=== PATIENT | female | born 1975 | race Caucasian/White ===

== ENCOUNTER 2017-12-20 15:01 | Inpatient (IN) | payer MEDICAID ==
[~2017-12-20] VITALS: Ht 157.5 cm; Wt 113.2 kg
[2017-12-20 15:11] VITALS: Ht 157.5 cm; Wt 113.2 kg
[2017-12-20] MEDS ORDERED: METFORMIN HCL850 MG PO (15:18)
[2017-12-20] MEDS ORDERED: RAMIPRIL2.5 MG PO (15:19)
[2017-12-20] MEDS ORDERED: ASPIR 8181 MG PO (15:19)
[2017-12-20] MEDS ORDERED: NORTRIPTYLINE H10 MG PO (15:19)
[2017-12-20 16:12] LABS: CALCIUM 8.4 mg/dL (8.5-10.1); CARBON DIOXIDE 23.8 mmol/L (21-32); CHLORIDE SERUM 101 mmol/L (98-107); CREATININE SERUM 1.1 mg/dL (0.6-1.0); GFR1 58 mL/min; GLUCOSE SERUM 224 mg/dL (74-106); POTASSIUM SERUM 4.2 mmol/L (3.5-5.1); SODIUM SERUM 135 mmol/L (136-145)
[2017-12-20 16:19] LABS: ALKALINE PHOSPHATASE 103 U/L (46-116); ALT/SGPT 14 U/L (14-59); AST/SGOT 12 U/L (15-37); BILIRUBIN TOTAL 0.76 mg/dL (0.20-1.00); CHOLESTEROL 142 mg/dL (<200); TOTAL PROTEIN, SERUM 8.1 g/dL (6.4-8.2)
[2017-12-20 16:20] LABS: ALBUMIN 3.1 g/dL (3.4-5.0); PLATELET COUNT 614 x10^3mcL (130-400)
[2017-12-20 16:44] LABS: UA SPECIFIC GRAVITY >=1.030 (1.005-1.035); microscopic required? YES; urine erythrocyte NEGATIVE (NEGATIVE)
[2017-12-20 16:47] LABS: MONOCYTE 2 % (0-7); SEGMENTED NEUTROPHILS 96 % (37-75); rbc morphology (normal/abnorm) ABNORMAL (NORMAL)
[2017-12-20 16:48] LABS: PLATELET MORPHOLOGY PLATELETS INCREASED
[2017-12-20 17:06] LABS: AMPHETAMINE QUAL UR NONE DETECTED (NEG <=1000)
[2017-12-20 17:26] LABS: CHOLESTEROL/HDL RATIO 3.2; PHOSPHOROUS 3.8 mg/dL (2.5-4.9)
[2017-12-20 17:35] LABS: T3 TOTAL 1.18 ng/mL
[2017-12-20 17:36] LABS: FREE T4 1.22 ng/dL (0.76-1.46); T4(THYROXINE) 12.6 ug/dL (4.7-13.3)
[2017-12-20 18:07] VITALS: BP 128/54
[2017-12-20 18:09] LABS: RED BLOOD CELLS 4.56 M/mm3 (4.10-5.10)
[2017-12-20 18:10] LABS: IRON 19 ug/dL (50-170); TOTAL IRON BINDING CAPACITY 447 ug/dL (250-450)
[2017-12-20 21:39] VITALS: BP 116/59
[2017-12-21 06:15] LABS: CALCIUM 7.4 mg/dL (8.5-10.1); CARBON DIOXIDE 24.3 mmol/L (21-32); CHLORIDE SERUM 102 mmol/L (98-107); CREATININE SERUM 0.8 mg/dL (0.6-1.0); GFR1 > 60 mL/min; GLUCOSE SERUM 209 mg/dL (74-106); PHOSPHOROUS 2.8 mg/dL (2.5-4.9); POTASSIUM SERUM 3.9 mmol/L (3.5-5.1); SODIUM SERUM 133 mmol/L (136-145)
[2017-12-21 06:17] LABS: BASOPHIL % 0.1 % (0-2)
[2017-12-21 06:34] VITALS: BP 107/50
[2017-12-21 07:12] LABS: PLATELET COUNT 485 x10^3mcL (130-400); RED CELL DISTRIBUTION WIDTH 18.1 % (11.5-14.5)
[2017-12-21 08:58] VITALS: BP 102/59
[2017-12-21 12:31] VITALS: BP 111/45
[2017-12-21 17:17] VITALS: BP 113/61
[2017-12-21 19:45] VITALS: BP 102/53
[2017-12-22 05:39] VITALS: BP 98/51
[2017-12-22 06:36] LABS: CALCIUM 7.1 mg/dL (8.5-10.1); CARBON DIOXIDE 23.9 mmol/L (21-32); CHLORIDE SERUM 106 mmol/L (98-107); CREATININE SERUM 0.8 mg/dL (0.6-1.0); GFR1 > 60 mL/min; GLUCOSE SERUM 131 mg/dL (74-106); POTASSIUM SERUM 3.8 mmol/L (3.5-5.1); SODIUM SERUM 137 mmol/L (136-145)
[2017-12-22 07:22] LABS: BASOPHIL % 0.4 % (0-2)
[2017-12-22 07:23] LABS: PLATELET COUNT 433 x10^3mcL (130-400); RED CELL DISTRIBUTION WIDTH 18.6 % (11.5-14.5); rbc morphology (normal/abnorm) ABNORMAL (NORMAL)
[2017-12-22 09:26] VITALS: BP 109/46
[2017-12-22] MEDS ORDERED: NEU300 PO (10:34)
[2017-12-22] MEDS ORDERED: GLU5 PO (10:36)
[2017-12-22 11:15] VITALS: BP 109/46
== END 2017-12-22 12:05 | disposition home or self-care (01) | DRG 720 ==
LOC: ED 15:01 → DU 16:48
PROVIDERS: Family Medicine; Specialist
DX: A41.9 Sepsis, unspecified organism (principal); N17.0 Acute kidney failure with tubular necrosis; E44.0 Moderate protein-calorie malnutrition; E87.1 Hypo-osmolality and hyponatremia; D64.9 Anemia, unspecified; N39.0 Urinary tract infection, site not specified; Z98.51 Tubal ligation status; Z68.42 Body mass index [BMI] 45.0-49.9, adult; E66.01 Morbid (severe) obesity due to excess calories; E11.40 Type 2 diabetes mellitus with diabetic neuropathy, unspecified; Z83.3 Family history of diabetes mellitus; Z82.49 Family history of ischemic heart disease and other diseases of the circulatory system; K43.9 Ventral hernia without obstruction or gangrene; G90.8 Other disorders of autonomic nervous system; K52.9 Noninfective gastroenteritis and colitis, unspecified
CPT/HCPCS: 83880; 84439; 85060; G0480; J2543; J3490; J7030; Q0092; Q9966